=== PATIENT | female | born 1960 | race Caucasian/White ===

== ENCOUNTER → 2019-05-21 | Outpatient (CLI) | payer BC, OTHER ==
[2019-05-21 11:05] LABS: CREATININE 0.8 mg/dL (0.6-1.0)
== END ==
LOC: CAT 10:00
PROVIDERS: Ophthalmology
DX: H11.412 Vascular abnormalities of conjunctiva, left eye (principal); H44.9 Unspecified disorder of globe; J34.2 Deviated nasal septum

== ENCOUNTER 2020-11-04 15:05 | Inpatient (IN) | payer BC, OTHER ==
[~2020-11-04] VITALS: Ht 152.4 cm; Wt 66.8 kg
[2020-11-04 15:12] VITALS: BP 144/87
[2020-11-04 15:44] LABS: ABSOLUTE NEUTROPHILS 2.5 thou/uL (1.4-8.2); BASOPHILS 0.5 % (0.0-2.0); EOSINOPHILS 1.6 % (0.0-3.0); HEMATOCRIT 42.3 % (37.0-47.0); LYMPHOCYTES 41.2 % (24.0-44.0); MCH 31.7 pg (26.0-34.0); MCHC 33.1 g/dL (28.0-37.0); MCV 95.7 fL (80.0-100.0); PLATELET COUNT 190 thou/uL (150-400); POLYS 44.7 % (36.0-66.0); RBC 4.42 mil/uL (4.20-5.00); WBC 5.5 thou/uL (4.0-11.0)
[2020-11-04] MEDS ORDERED: RESTASIS1 EACH OPHTHALMIC (16:09)
[2020-11-04] MEDS ORDERED: PROLIA60 MG/1 ML SUBQ (16:09)
[2020-11-04] MEDS ORDERED: FLONASE 0.05%50 MCG NARES (16:12)
[2020-11-04] MEDS ORDERED: REVIA 50 MG TAB50 M1 PO (16:13)
[2020-11-04] MEDS ORDERED: PROBIOTIC1 EAC7 PO (16:13)
[2020-11-04] MEDS ORDERED: ZYRTEC10 M5 PO (16:13)
[2020-11-04] MEDS ORDERED: PREORBOTIC CAP1 EACH PO (16:14)
[2020-11-04 16:15] LABS: ANION GAP 10 mmol/L (7-16); BUN 12 mg/dL (7-18); CALCIUM 9.3 mg/dL (8.5-10.1); CHLORIDE 109 mmol/L (98-107); CO2 27 mmol/L (21-32); GLUCOSE 99 mg/dL (74-106); POTASSIUM 3.4 mmol/L (3.5-5.1); SODIUM 146 mmol/L (136-145)
[2020-11-04] MEDS ORDERED: FISH OIL 1,001000 M2 PO (16:15)
[2020-11-04] MEDS ORDERED: CORTEF 20 MG TA20 M1 PO (16:16)
[2020-11-04 16:25] LABS: ALBUMIN 3.5 g/dL (3.4-5.0); SGOT 45 U/L (15-37); SGPT 172 U/L (14-59); TOTAL BILIRUBIN 0.4 mg/dL (0.2-1.0); TOTAL PROTEIN 7.2 g/dL (6.4-8.2); TROPONIN-I <0.06 ng/mL (<0.06)
[2020-11-04 16:50] VITALS: BP 118/62
[2020-11-04 18:20] VITALS: BP 117/69
[2020-11-04 18:28] VITALS: BP 125/72
[2020-11-04 19:59] LABS: CHOLESTEROL 231 mg/dL (<200); HDL CHOLESTEROL 54 mg/dL (>40); LDL CHOLESTEROL 133 mg/dL (<100); TC:HDL 4.3 Ratio (Not establshd); TRIGLYCERIDE 220 mg/dL (<150); VLDL 44 mg/dL (<40)
[2020-11-04 20:08] LABS: SERUM ASSESSMENT Clear
[2020-11-05 01:03] VITALS: BP 123/64
[2020-11-05 01:04] VITALS: BP 114/74
[2020-11-05 01:05] VITALS: BP 124/92
[2020-11-05 04:11] VITALS: BP 140/69
--- NOTE | 2020-11-05 06:14 | NUR ---
PATIENTS CARES WERE ASSUMED AT SHIFT CHANGE. THE DAY SHIFT UNAWEAR THE ED DROPPED OFF THE PATIENT AND DID NOT ADVISE THE DAY NURSE. PATIENT STATED SHE GOT TO THE ROOM AT 1850 A TIME WHEN NO TRANSFERS ARE TO BE DONE. PATIENT WAS ASSESSED AND MEDS WERE PASSED. PATIENTS HEART RATE DROPS DOWN TO 44 BPM. PATIENT CONTINUES TO C/O DIZZY AND CHEST PRESSURE. ROUNDS WERE DONE. THE BED IS IN A LOW AND LOCKED POSITION
--- NOTE | 2020-11-05 07:25 | EKG ---
[address] [address] ELECTROCARDIOGRAM REPORT Name: BONNIE HOANG Room #: 219-P ADM IN M.R.#: [id number] Admission: 11/04/20 Attend Phys: Ronn Mendieta MD Discharge: Date of : 56 Report #: [id number] [facility] ED Test Date: 2020-11-04 Test Time: 15:09:56 Pat Name: BONNIE HOANG Department: Room: 219 Gender: F Cardiology Fellow: : 1960 Requested By: Kojo Sarah Order Number: [id number] : Riley Blank Measurements Intervals [place] Rate: 77 P: 65 MS: 136 QRS: 29 QRSD: 86 T: 39 QT: 385 QTc: 436 Interpretive Statements Sinus rhythm Ventricular premature complex No previous ECG available for comparison Electronically Signed On 11-05-2020 7:25:22 CDT by Riley Blank [email or web address] <ELECTRONICALLY SIGNED> By: Riley Blank MD, [facility] 11/05/20 0725 1509 [id number] Riley Blank MD, FACC /EPI
[2020-11-05 08:55] VITALS: BP 170/69
--- NOTE | 2020-11-05 09:58 | EKG ---
[address] [place] [address] ELECTROCARDIOGRAM REPORT Name: BONNIE HOANG Room #: 219-P ADM IN M.R.#: [id number] Admission: 11/04/20 Attend Phys: Eldon Stein MD Discharge: Date of : 56 Report #: [id number] [facility] Test Date: 2020-11-05 Test Time: 08:24:54 Pat Name: BONNIE HOANG Department: Room: 219 P Gender: F Associate Professor Of Radiology: PRABHAKAR : 1960 Requested By: Nia Barton Order Number: [id number] MD: Riley Blank Measurements Intervals [place] Rate: 52 P: 72 DC: 147 QRS: 16 QRSD: 92 T: 22 QT: 449 QTc: 418 Interpretive Statements Sinus rhythm Ventricular premature complex Low voltage, precordial leads Baseline wander in lead(s) II,aVR Compared to ECG 11/04/2020 15:09:56 Low QRS voltage now present Electronically Signed On 11-05-2020 9:57:50 CDT by Riley Blank [email or web address] <ELECTRONICALLY SIGNED> By: Riley Blank MD, [facility] 11/05/20 0957 3 3 Riley Blank MD, [facility] /EPI
--- NOTE | 2020-11-05 14:23 | EXE ---
[facility] [place] [address] STRESS ECHOCARDIOGRAM Name: BONNIE HOANG Room #: 219-P ADM IN M.R.#: [id number] Admission: 11/04/20 Attend Phys: Eldon Stein MD Discharge: Date of : 56 Report #: [id number] THIS REPORT FOR: cc: Minh Dickinson MD, Ted J. MD Mancuso, Gerald M. MD [facility] ~ APPROVED REPORT Study performed: 11/05/2020 08:51:47 Exam: Stress Echocardiogram Indication: Chest pain Patient Location: In-Patient Room #: 219 Status: routine Ht: 5 ft 0 in HR: 68 bpm BP: 162/86 mmHg Rhythm: NSR Medical History Medical History: HTN Cardiac Risk Factors: HTN, FHX of CAD Exercise History: Physically active Procedure The patient underwent an Exercise Stress Test using the Christiano Protocol. Blood pressure, heart rate, and EKG were monitored. An Echocardiogram was performed by fuel retrofitting technician in four stages in quad fashion. At peak stress, four selected images were obtained and placed side by side with resting images for comparison. Stress Test Details Stress Test: Exercise stress testing was performed using a Christiano protocol. HR Resting HR: 68 bpm Max Heart Rate (APMHR): 158 bpm Max HR Achieved: 142 bpm Target HR (85% APMHR): 134 bpm % of APMHR: 89 Recovery HR: 72 bpm HR response to stress: Normal HR response to stress BP Resting BP: 162/86 mmHg [facility] [address] [place] [address] STRESS ECHOCARDIOGRAM Name: BONNIE HOANG Room #: 219-P [facility] IN M.R.#: [id number] Admission: 11/04/20 Attend Phys: Eldon Stein MD Discharge: Date of : 56 Report #: [id number] Max BP: 166/78 mmHg Recovery BP: 138/74 mmHg BP response to stress: Normal blood pressure response to stress. ECG Clinical Reason for Termination: Maximal effort Exercise duration: 7 min 37 sec Highest Stage Achieved: Stage 3: 3.4 mph at 14% grade. Exercise capacity: 10.4 METs Overall Exercise Capacity for Age: Good Stress ECG Conclusion Frequent PVC Pre-Stress Echo The resting Echocardiogram showed normal left ventricular contractility with an estimated Ejection Fraction of about >55%. The resting echocardiogram demonstrated normal wall motion in all wall segments. Post-Stress Echo The stress Echocardiogram showed normal left ventricular contractility with an estimated Ejection Fraction of about 65-70%. Compared to rest, there were no stress-induced wall motion abnormalities. Clinical Color flow doppler: Mild Mitral, Aortic and Tricuspid regurgitation Conclusion Clinical Response: Non-ischemic Exercise Capacity: Average Stress ECG Response: Non-ischemic Stress Echo Images: Non-ischemic No prior study available for comparison. Other Information Study Quality: Good <ELECTRONICALLY SIGNED> By: Karel Saleem MD, FACC 11/05/20 1423 1423 1423 Karel Saleem MD, [facility] /INF
[2020-11-05 19:24] VITALS: BP 156/87
[2020-11-06 00:06] LABS: GLYCOHEMOGLOBIN (HGB A1C) 5.5 % (4.8-5.6)
[2020-11-06 04:02] VITALS: BP 141/75
[2020-11-06 05:35] LABS: HEMATOCRIT 38.9 % (37.0-47.0); MCH 31.9 pg (26.0-34.0); MCHC 33.4 g/dL (28.0-37.0); MCV 95.5 fL (80.0-100.0); RBC 4.08 mil/uL (4.20-5.00); RDW 14.9 % (10.5-14.5); WBC 6.4 thou/uL (4.0-11.0)
[2020-11-06 06:00] LABS: CALCIUM 8.5 mg/dL (8.5-10.1); CREATININE 0.7 mg/dL (0.6-1.0); POTASSIUM 4.1 mmol/L (3.5-5.1)
[2020-11-06 08:48] VITALS: BP 176/66
[2020-11-06 11:37] VITALS: BP 173/64
[2020-11-06] MEDS ORDERED: NORVASC10 MG PO (16:17)
[2020-11-06 16:31] VITALS: BP 173/64
--- NOTE | 2020-11-06 17:29 | NUR ---
PATIENT DISCHARGED HOME. IV & TELE REMOVED. DISCHARGE EDUCATION COMPLETED. NO QUESTIONS AT TIME OF DC. PT VOICED FRUSTRATION WITH THE DOCTORS PRESCRIBING NORVASC AND NOT TALKING TO HER FIRST. PT AGAIN VOICING THAT SHE WILL NOT TAKE ANY BP MEDS SHE VOICED THIS TO THE DOCTORS TODAY.
--- NOTE | 2020-11-07 08:51 | HC ---
[facility] [place] [address] CONSULTATION Name: BONNIE HOANG Room #: 219-P [facility] IN M.R.#: [id number] Admission: 11/04/20 Attend Phys: Eldon Stein MD Discharge: 11/06/20 Date of : 56 Report #: [id number] THIS REPORT FOR: cc: Minh Dickinson MD, Ted J. MD [place], Roxane S. DO ~ NEUROLOGY CONSULTATION HISTORY OF PRESENT ILLNESS: The patient is a 60-year-old female who tells me that she has an odd feeling in her head. It is almost as though she is lightheaded, but sometimes she also feels dizzy. She has been to 2 different primary care providers. She states that they both "blew me off." The second primary care provider told her that if the symptoms continued, she should come to the emergency room, which is what she has done. She was admitted 2 days ago. When she went to the ER, she mentioned that she had discontinued her blood pressure medication as of 10/28/2020 and had been on a Max Life weight loss supplement, but had not taken that for over 3 weeks. She did not mention either of the medication or the supplement to me. She states that she has these intermittent episodes of lightheadedness and dizziness accompanied by chest pressure. She stated that this has been going on for 6 weeks. 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 She denies headache. She denies weakness in her arms or legs. She has no numbness or tingling. She has only this odd feeling in her head. She states there is nothing she can do to bring it on. There is nothing she can do to make it better. It can occur when she is just sitting in a chair. She has it as she is speaking to me now. PAST MEDICAL HISTORY: Crohn's disease, hypertension. PAST SURGICAL HISTORY: Colon resection, tubal ligation, lumpectomy, tubes in bilateral eyes, thoracic fusion, exploratory lap appendectomy. MEDICATIONS: In hospital, she is on Lovenox 40 mg subQ at night, famotidine 20 mg b.i.d. ALLERGIES: CONTRAST DYE. PHYSICAL EXAMINATION: VITAL SIGNS: Temperature 36.8, pulse rate 57 with a lowest heart rate of 48, respiratory rate 18, blood pressure 173/64, bedside pulse oximetry 95% on room air. LABORATORY DATA: Hematology: White blood cell count 6.4, hemoglobin 13, hematocrit 38.9, MCV 95.5, platelet count 181,000. Chemistry: Sodium 146, [address] [address] CONSULTATION Name: BONNIE HOANG Room #: 219-P [facility] IN M.R.#: [id number] Admission: 11/04/20 Attend Phys: Eldon Stein MD Discharge: 11/06/20 Date of : 56 Report #: [id number] potassium 4.1, chloride 110, carbon dioxide 24, BUN 12, creatinine 0.7, GFR 85, glucose 92, hemoglobin A1c 5.5, calcium 8.5, magnesium 2, total bilirubin 0.4, AST 45, ALT 172, alkaline phosphatase 74, total protein 7.3, triglycerides 220, cholesterol 231, LDL cholesterol 133, HDL cholesterol 54. TSH 1.9. IMAGING: Chest x-ray, no acute pulmonary findings. Carotid ultrasound, no evidence of significant carotid artery stenosis. CT head, no evidence of acute intracranial hemorrhage or other acute intracranial abnormality. NEUROLOGIC EXAM: Cranial nerves II-XII grossly intact. Extraocular movements intact. Facial expression symmetrical. Tongue midline. Shoulder shrug symmetrical bilaterally. Motor: The patient is able to lift both arms parallel to the bed. She is able to lift each leg to a 45-degree angle from the bed. Reflexes are symmetrical throughout. Plantar responses are flexor. Coordination reveals intact [id number] and [id number]. IMPRESSION AND PLAN: This patient describes an odd feeling in her head. I have ordered an MRI of the head to look for a more subtle stroke that may not be seen on a CT scan. I have also ordered an ammonia level as her liver functions are very mildly elevated and a B12 level. I explained to the patient that if these symptoms persist, the next step may be a lumbar puncture. This can be done as an outpatient. I thank you for your kind referral of the patient and we will continue to follow her with you. <ELECTRONICALLY SIGNED> By: Lety Meyer DO 11/07/20 0851 1051 [id number] Lety Meyer DO /nt
== END 2020-11-06 17:39 | disposition home or self-care (01) | DRG 313 ==
LOC: ER 15:05 → 2N 18:00 → EROBS 18:00 → 2N 18:35
PROVIDERS: Emergency Medicine; Nurse Practitioner Family; ADMIT Hospitalist; ATTEND Hospitalist
DX: R07.9 Chest pain, unspecified (principal); K50.90 Crohn's disease, unspecified, without complications; I10 Essential (primary) hypertension; E78.5 Hyperlipidemia, unspecified; Z91.041 Radiographic dye allergy status; Z90.49 Acquired absence of other specified parts of digestive tract; Z82.49 Family history of ischemic heart disease and other diseases of the circulatory system; Z79.82 Long term (current) use of aspirin; Z79.899 Other long term (current) drug therapy
CPT/HCPCS: 10081

== ENCOUNTER → 2020-11-30 | Outpatient (CLI) | payer OTHER ==
[~2020-11-30] MED LIST: CORTEF 20 MG TA20 M1 PO; FISH OIL 1,001000 M2 PO; FLONASE 0.05%50 MCG NARES; NORVASC10 MG PO; PREORBOTIC CAP1 EACH PO; PROBIOTIC1 EAC7 PO; PROLIA60 MG/1 ML SUBQ; RESTASIS1 EACH OPHTHALMIC; REVIA 50 MG TAB50 M1 PO; ZYRTEC10 M5 PO
== END ==
LOC: CAT 11:58
PROVIDERS: ATTEND Internal Medicine Cardiovascular Disease
DX: Z13.6 Encounter for screening for cardiovascular disorders (principal); I25.10 Atherosclerotic heart disease of native coronary artery without angina pectoris; E78.00 Pure hypercholesterolemia, unspecified

== ENCOUNTER → 2020-11-30 | Outpatient (CLI) | payer BC, OTHER | LOC: SJCVCIMAG 12:31 | PROVIDERS: ATTEND Internal Medicine Cardiovascular Disease | DX: K80.20 Calculus of gallbladder without cholecystitis without obstruction (principal); Z78.0 Asymptomatic menopausal state ==